=== PATIENT | female | born 1970 | race Caucasian/White ===

== ENCOUNTER 2024-02-22 10:57 | Emergency (ER) | payer OTHER, SELFPAY ==
[2024-02-22 11:00] VITALS: BP 112/77
[2024-02-22 11:36] VITALS: BP 131/85
--- NOTE | 2024-02-22 11:58 | ED.GENMED ---
History of Present Illness
General
Chief Complaint: Musculo-Skeletal Complaint
Source: patient
Exam Limitations: none
Time Seen by Provider: 02/22/24 11:35
Nursing documentation reviewed up to this point in time: agreed with
History of Present Illness
History of Present Illness:
53-year-old female reports emergency department complaining of left shoulder pain. She fell while playing pickle ball.
Past History
Past History
ED Past Medical History: None
ED Past Surgical History: Appendectomy
Social History
Tobacco: Non-smoker
Alcohol: None
Drug: None
Personal:
Living: with family
Review of Systems
Review of Systems
Allergies reviewed?: Yes
All Other Systems: Not applicable
Constitutional: Reports no symptoms
EENT: Reports no symptoms
Respiratory: Reports no symptoms
Cardiac: Reports no symptoms
ABD/GI: Reports no symptoms
: Reports no symptoms
Musculoskeletal: Reports joint pain and joint swelling
Skin: Reports no symptoms
Neurological: Reports numbness
Endocrine: Reports no symptoms
Hematologic/Lymphatic: Reports no symptoms
Psychiatric: Reports no symptoms
Phy Exam
Physical Exam
Physical Exam:
Physical Exam
General: Appears uncomfortable
Neck: supple. no meningeal signs. normal posterior pharynx
Heart: equal radial pulses.
HEENT: Pupils equal round reactive to light, EOMI
Lungs: no acute respiratory distress.
Abdomen: normal bowel sounds. not tender. no CVAT
Neuro: alert and oriented. no focal neurological deficits cranial nerves II through XII intact
Skin: no rash
Psychiatric: well kept. interactive and cooperative
Extremities: no edema. no calf tenderness. negative homans. good distal pulses, anterior shoulder swelling left side
Course
Orders/Labs/Results
Orders:
Orders
02/22/24 11:02
Shoulder, Left, Trauma CR [CR Shoulder, Trauma - Left] Urgent
Comment:
Reason For Exam: fall during pickleball
02/22/24 11:53
CR Shoulder - Left 1 View Stat
Reason For Exam: post reduction
02/22/24 12:11
ASA Classification Routine
HYDROmorphone [Dilaudid] 0.5 mg IV NOW STA
Ondansetron Injectable [Zofran] 4 mg IV NOW STA
Propofol [Diprivan] 50 mg IV NOW STA
02/22/24 12:30
Shoulder, Left 2 View CR [CR Shoulder - Left Min 2 View*] Urgent
Comment:
Reason For Exam: post reduction
Vital Signs
Initial and Last Documented VS:
Initial Vital Signs
Temp Pulse Resp BP Pulse Ox
98.2 F 62 18 112/77 96
02/22/24 11:00 02/22/24 11:00 02/22/24 11:00 02/22/24 11:00 02/22/24 11:00
Last Documented Vital Signs
Temp Pulse Resp BP Pulse Ox
98.2 F 66 20 131/85 99
02/22/24 11:00 02/22/24 11:45 02/22/24 12:30 02/22/24 11:36 02/22/24 11:45
Procedures
Joint/Fracture Reduction
Left Shoulder:
Indication for procedure:: Left shoulder dislocation
Procedure completed by: Dr. Valladares
Consent form signed: Yes
Joint reduced: without anesthesia
Injury was: closed
Further treatement: needs re-check only
Post reduction exam: stable
Capillary Refill: normal
Normal distal neurovascular exam?: Yes
Peripheral Pulses: brachial (left): 4+ and femoral (left): 4+
MDM/Problems Addressed
Differential Diagnosis Includes:
Left shoulder fracture, left shoulder dislocation
MDM/Problems Addressed:
53-year-old female with left shoulder dislocation, reduced after given 0.5 mg of Dilaudid. Paresthesias improving. Sling placed. Discharged to follow-up with orthopedics.
*Radiology
Radiology exam reviewed: preliminary read by ED provider (Initial x-ray shows anterior dislocation, no fracture, repeat x-ray shows satisfactory reduction without fracture.)
*Pulse Oximetry
Patient hypoxic: no
*Critical Care Note
Total Time (30-74mins, 75-104mins- exclusive of procedures): Not Applicable
Patient Management
Social determinants of health affecting care: Living situation and Strong social support
Escalation/DeEscalation of care consider admission/obs:
Admit not indicated
ED Attending Note
-
Portions of this chart may have been created with voice recognition software.� Occasional wrong word or��sound alike� substitutions may have occurred due to the inherent limitations of voice recognition software.
Discharge Plan
Departure
Patient Disposition: Home (Routine Discharge)
Date of Disposition: 02/22/24
Time of Disposition: 12:57
Patient with high blood pressure during this ER visit?: Yes
Condition: Good
Discharge Problem:
Anterior dislocation of left shoulder
Instructions: Shoulder Dislocation (DC), How to Use a Shoulder Sling, BLOOD PRESSURE
Referrals:
Gumaro Mosquera MD [Active] - Call in 1-3 days for appt
Rosa Elena Zhu DO [Family Provider] -
Interventions
Interventions:
*Risk Screen - Suicide Last Done: 02/22/24 11:00
*General Assessment Last Done: 02/22/24 11:00
*Neglect/Abuse Screening Last Done: 02/22/24 11:00
*ED COVID-19 Vaccine History Last Done: 02/22/24 11:38
ED-Musculoskeletal Assessment Last Done: 02/22/24 11:38
Discharge Date and Time
Print Language: DOMINICAN
[2024-02-22 12:14] VITALS: BP 133/86
[2024-02-22] MEDS: ZOFRAN 4 MG IV (12:19)
[2024-02-22] MEDS: DILAUDID 0.5 MG IV (12:19)
== END 2024-02-22 13:35 | disposition home or self-care (01) ==
LOC: EMR 10:57
PROVIDERS: EMERGENCY PHYSICIAN Emergency Medicine; FAMILY PHYSICIAN Internal Medicine
DX: S43.015A Anterior dislocation of left humerus, initial encounter (principal); W19.XXXA Unspecified fall, initial encounter; Z90.49 Acquired absence of other specified parts of digestive tract
CPT/HCPCS: 23650; 96374; 96375; 99284; 73020; 73030